=== PATIENT | male | born 1940 | race Caucasian/White ===

== ENCOUNTER 2017-01-07 07:50 | Day surgery (SDC) | payer MEDICARE, OTHER ==
[~2017-01-07] VITALS: Ht 172.7 cm; Wt 54.8 kg
[~2017-01-07 07:50] MED LIST: ALBU18HF INH; AMIT50TA PO; AMLO10TA4 PO; BUPIVACAINE/PF 0.5% ONE; CIPR500T87 PO; FLUC200T PO; FLUT1DIS3 INH; GUAI-103 PO; HYDR-3307 PO; HYDR10TA11 PO; IBUP100T6 PO; IPRA3AMP18 NEB; KETO200T41 PO; LISI40TA PO; LOSA50TA6 PO; METO50TA82 PO; NICO-487 TD; OMEP-110 PO; POTA10TA11 PO; PRED10TA PO; TIOT18CA INH; TRIA1CAP3 PO; WARF1POW PO
[2017-01-07] MEDS ORDERED: FENTANYL PF 100 MCG/2ML ONE (08:51)
[2017-01-07 08:55] VITALS: BP 158/86
[2017-01-07] MEDS ORDERED: LACTATED RINGERS 1,000 ML IV SCH (08:59)
[2017-01-07] MEDS ORDERED: VITAMIN D2 PO (09:21)
[2017-01-07] MEDS ORDERED: CLEAR FIBER PO (09:22)
[2017-01-07] MEDS ORDERED: CLOP75TA PO (09:22)
[2017-01-07] MEDS ORDERED: ROCURONIUM 10 MG/ML ONE (09:53)
[2017-01-07] MEDS ORDERED: PHENYLEPHRINE 10 MG/ML ONE (09:53)
[2017-01-07] MEDS ORDERED: NEOSTIGMINE 1 MG/ML, 10ML ONE (09:53)
[2017-01-07] MEDS ORDERED: ONDANSETRON 2MG/ML, 2ML ONE (09:53)
[2017-01-07] MEDS ORDERED: PROPOFOL 10 MG/ML, 20ML ONE (09:53)
[2017-01-07] MEDS ORDERED: SUCCINYLCHOLINE 20 MG/ML, 10ML ONE (09:53)
[2017-01-07] MEDS ORDERED: GLYCOPYRROLATE 0.2MG/1ML, 5ML ONE (09:53)
[2017-01-07 10:03] LABS: HEMATOCRIT 29.4 % (39.2-51.8); HEMOGLOBIN 9.8 g/dL (13.7-18.0); WHITE BLOOD COUNT 7.5 x10^3/uL (3.4-10)
[2017-01-07 10:04] LABS: ASPARTATE AMINO TRANSFERASE 9 U/L (15-37); BLOOD UREA NITROGEN 26 mg/dL (7-18)
[2017-01-07 10:09] LABS: CARCINOEMBRYONIC ANTIGEN 4.34 ng/mL (0.0-3.00)
[2017-01-07] MEDS ORDERED: METRONIDAZOLE PMX 500MG/100ML 100 ML ONE (10:09)
[2017-01-07] MEDS ORDERED: ALBUTEROL/IPRATROPIUM 2.5MG/0.5MG, 3 ML NPPB PRN (10:30)
[2017-01-07] MEDS ORDERED: HYDROmorphone 1 MG/ML, 1ML IV PRN (10:30)
[2017-01-07] MEDS ORDERED: ONDANSETRON 2MG/ML, 2ML IVPush PRN (10:30)
[2017-01-07] MEDS ORDERED: hydrALAzine 20 MG/ML, 1ML IV PRN (10:30)
[2017-01-07] MEDS ORDERED: LABETALOL 5MG/ML, 20ML IV PRN (10:30)
[2017-01-07] MEDS ORDERED: FENTANYL PF 100 MCG/2ML IV PRN (10:30)
[2017-01-07] MEDS ORDERED: OXYcodone 5 MG/5 ML ORAL.SOL UDC PO PRN (10:30)
== END 2017-01-07 14:30 | disposition home or self-care (01) ==
LOC: OUT 07:50
PROVIDERS: ATTEND Surgery
DX: K62.89 Other specified diseases of anus and rectum (principal); J44.9 Chronic obstructive pulmonary disease, unspecified; K21.9 Gastro-esophageal reflux disease without esophagitis; I10 Essential (primary) hypertension; Z85.048 Personal history of other malignant neoplasm of rectum, rectosigmoid junction, and anus; Z98.890 Other specified postprocedural states; Z86.718 Personal history of other venous thrombosis and embolism
CPT/HCPCS: 36415; 45171; 80053; 82378; 85025; 88307; 93005; J0330; J2370; J2405; J2704; J2710; J3010; J7120; J3490